=== PATIENT | male | born 1985 | race Caucasian/White ===

== ENCOUNTER 2016-06-16 13:02 | Emergency (ER) | payer OTHER ==
[2016-06-16 13:13] VITALS: BP 134/88; PULSE 87; TEMP 97.5; BMI 41.8
--- NOTE | 2016-06-16 14:27 | PDOC ---
History of Present Illness - General Chief Complaint: Pain, Acute Stated Complaint: RT KNEE PAIN Time Seen by Provider: 06/16/16 14:13 History Source: Patient Exam Limitations: No Limitations - History of Present Illness Initial Comments: 06/16/16 14:55 Patient here with complaints of severe pain to his right knee with swelling onset 2 days ago. Has suffered from significant gout since age 11 and has run out of his colchicine and indomethacin. Admits to eating "all the wrong foods, and drinking over the holidays ". Has never had a gout locate to his knee and primarily suffers from gouty attacks in his feet but feels may be related. Denies fever, exercise changes, but has been limping due to some tenderness to his left foot recently. 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 06/16/16 14:58 Occurred: reports: yesterday Severity: reports: moderate, severe Pain Location: reports: lower extremity Past History - Travel Traveled outside of the country in the last 30 days: No (right knee) Close contact w/someone who was outside of country & ill: No - Past Medical History Allergies/Adverse Reactions: Allergies Allergy/AdvReac Type Severity Reaction Status Date / Time No Known Allergies Allergy Verified 02/18/15 04:08 Home Medications: Ambulatory Orders No Home Medications 0 dose .ROUTE UTDICT 09/04/12 Clotrimazole [Lotrimin -] 1 applic TP BID #1 tube 02/18/15 Colchicine [Colcrys -] 0.3 mg PO QID #20 tablet 06/16/16 Indomethacin [Indocin -] 25 mg PO BID #60 capsule 06/16/16 Other medical history: GOUT - Psycho/Social/Smoking Cessation Hx Suicidal Ideation: No Smoking Status: Yes Smoking History: Current every day smoker Number of Cigarettes Smoked Daily: 6 Information on smoking cessation initiated: Yes 'Breaking Loose' booklet given: 06/16/16 Hx Alcohol Use: No Drug/Substance Use Hx: No Substance Use Type: None Trauma Specific PMHX - Complaint Specific PMHX Back Injury: No Neck Injury: No Review of Systems - Review of Systems Able to Perform ROS?: Yes Is the patient limited Sinhala proficient: Yes Constitutional: Yes: Symptoms Reported, Malaise HEENTM: Yes: Symptoms Reported Respiratory: No: Symptoms reported Musculoskeletal: Yes: Symptoms Reported, See HPI, Gout, Joint Pain, Joint Swelling Integumentary: No: Symptoms Reported All Other Systems: Reviewed and Negative *Physical Exam - Vital Signs Last Vital Signs Temp Pulse Resp BP Pulse Ox 97.5 F L 87 18 134/88 97 06/16/16 13:04 06/16/16 13:04 06/16/16 13:04 06/16/16 13:04 06/16/16 13:04 - Physical Exam General Appearance: Yes: Nourished, Appropriately Dressed, Apparent Distress, Moderate Distress HEENT: positive: RODRIGO, Normal ENT Inspection, TMs Normal, Pharynx Normal Neck: positive: Supple. negative: Lymphadenopathy (R), Lymphadenopathy (L) Respiratory/Chest: positive: Lungs Clear. negative: Wheezing Musculoskeletal: positive: Decreased Range of Motion (patient with enlarged, tender, with no heat redness or cellulitic appearance to his right knee. Range of motion is limited secondary to severe pain. Is soft without cording). negative: Normal Inspection Extremity: positive: Normal Capillary Refill, Tender. negative: Normal Inspection, Normal Range of Motion Integumentary: positive: Normal Color, Dry, Warm, Pale Neurologic: positive: artifacts conservator II-XII NML intact, Fully Oriented, Alert, Normal Mood/ Affect, Normal Response, Motor Strength 5/5 Progress Note - Progress Note Progress Note: Gouty attack to right knee. X-ray negative for any bone pathology. Will treat with anti-inflammatories, renewed prescription for call Tyson and Indocin. Referred patient to rheumatology for further evaluation and possible needed treatment for severe gout *DC/Admit/Observation/Transfer Diagnosis at time of Disposition: Gout Qualifiers: Gout site: knee Gout etiology: unspecified cause Laterality: right Chronicity: acute Qualified Code(s): M10.9 - Gout, unspecified - Discharge Dispostion Disposition: HOME Condition at time of disposition: Stable Admit: No - Prescriptions Prescriptions: Colchicine [Colcrys -] 0.3 mg PO QID #20 tablet Indomethacin [Indocin -] 25 mg PO BID #60 capsule - Referrals Referrals: Efrain Vieyra MD [Primary Care Provider] - Kalen Clayton MD [Staff Physician] - - Patient Instructions Printed Discharge Instructions: DI for Gout Additional Instructions: Rest, ice to area on and off for 15 minutes 4-6 times a day Avoid heavy lifting or exercise until pain and swelling is resolved or until further directed Keep area highly elevated to reduce swelling Use splints/Zack wrap as directed Followup with orthopedist in one to 2 days if not improving, if significantly improved may wait one week for followup with orthopedist May use ibuprofen 2-200 mg tablets every 6 hours as needed for pain
[2016-06-16] MEDS ORDERED: KETOROLAC TROMETHAMINE 60 MG/2 ML VIAL ONE (14:44)
[2016-06-16] MEDS ORDERED: KETOROLAC TROMETHAMINE 60 MG/2 ML VIAL IM ONE (14:55)
== END 2016-06-16 16:00 | disposition home or self-care (01) ==
LOC: JERFT 13:02
PROC: 3E0233Z Introduction of Anti-inflammatory into Muscle, Percutaneous Approach (ICD-10-PCS; principal; 2016-06-16)
DX: M10.9 Gout, unspecified (principal)
CPT/HCPCS: 73562-TC-RT; 99281-25

== ENCOUNTER 2021-03-11 07:18 | Emergency (ER) | payer OTHER ==
[2021-03-11 07:40] VITALS: BP 167/100; PULSE 58; TEMP 98.2; BMI 45.6
[2021-03-11] MEDS ORDERED: KETOROLAC TROMETHAMINE 30 MG/1 ML VIAL IM ONE (08:36)
[2021-03-11] MEDS ORDERED: KETOROLAC TROMETHAMINE 30 MG/1 ML VIAL ONE (08:40)
== END 2021-03-11 09:24 | disposition home or self-care (01) ==
LOC: JERFT 07:18
PROC: 3E0233Z Introduction of Anti-inflammatory into Muscle, Percutaneous Approach (ICD-10-PCS; principal; 2021-03-11)
DX: K08.89 Other specified disorders of teeth and supporting structures (principal)
CPT/HCPCS: 99284-25